=== PATIENT | male | born 1970 | race Hispanic/Latino ===

== ENCOUNTER 2020-07-17 13:46 | Emergency (ER) | payer SELFPAY ==
[2020-07-17 19:20] LABS: Absolute Lymphocytes (CBC) 1.4 K/uL (0.7-4.9); Basophils % 0.3 % (0-1.3); Lymphocytes % 20.5 % (15.3-44.8); MPV 7.4 fL (7.6-11.3); RBC Red Blood Cell Count 4.62 M/uL (4.33-5.43)
[2020-07-17 19:26] LABS: Protime INR 1.08
[2020-07-17 19:41] LABS: ALT/SGPT 23 U/L (12-78); AST/SGOT 25 U/L (15-37); Albumin 3.4 g/dL (3.4-5.0); Alkaline Phosphatase 86 U/L (45-117); BUN Blood Urea Nitrogen 16 mg/dL (7-18); Bicarbonate 23 mmol/L (21-32); Bilirubin Direct 0.1 mg/dL (0-0.2); Bilirubin Total 0.4 mg/dL (0.2-1.0); Glucose Level 93 mg/dL (74-106); Magnesium 2.3 mg/dL (1.8-2.4); NT PRO-BNP 45 pg/mL (<125); Potassium 3.4 mmol/L (3.5-5.1); Protein, Total 8.3 g/dL (6.4-8.2); Sodium Level 140 mmol/L (136-145); Troponin (Emerg Dept Use Only) 0.03 ng/mL (0.0-0.045)
--- NOTE | 2020-07-17 20:01 | RAD REPORT ---
EXAM DESCRIPTION: RAD - Chest Single View - 07/17/2020 7:29 pm CLINICAL HISTORY: SOB Chest pain. COMPARISON: No comparisons FINDINGS: Portable technique limits examination quality. Moderate patchy opacities are present in the right lung likely related to infection/ pneumonia. The h eart is normal in size. No displaced fractures.
[2020-07-17] MEDS ORDERED: dexAMETHasone 10 MG/ML VIAL ONE (20:15)
[2020-07-17] MEDS ORDERED: NA CHLORIDE 0.9% 50 ML ONE (20:15)
[2020-07-17] MEDS ORDERED: LEVALBUTEROL 1.25 MG/3 ML NEB ONE (20:15)
--- NOTE | 2020-07-17 20:19 | RAD REPORT ---
EXAM DESCRIPTION: CT - Chest For Pe Angio - 07/17/2020 8:08 pm CLINICAL HISTORY: Chest pain. SOB COMPARISON: No comparisons TECHNIQUE: CT angiogram of the pulmonary arteries was performed with MIP. All CT scans are performed using dose optimization technique as appropriate and may include automated exposure control or mA/KV adjustment according to patient size. FINDINGS: No evidence of pulmonary thromboembolism. No acute aortic finding demonstrated. Moderate patchy opacity is present along the periphery of both lungs, greater on the right. This is l ikely related viral pneumonitis/ bronchitis. No significant pericardial or pleural fluid. No concerning bony finding. IMPRESSION: No evidence of pulmonary thromboembolism. Moderate patchy opacity along the periphery of both lungs, greater on the right. This is likely relat ed to COVID-19 infection.
--- NOTE | 2020-07-17 20:57 | EDPHYS ---
Physician Documentation [facility] Name: Felipe Swenson Age: 49 yrs Sex: Male : 1970 Arrival Date: 07/17/2020 Time: 13:50 Bed 20 Private MD: ED Physician Jeevan Osorio HPI: 07/17 20:34 This 49 yrs old Male presents to ER via Ambulatory with complaints of covid+, jmm getting worse. 20:34 The patient or guardian reports cough, SOB. Onset: The symptoms/episode began/occurred jmm gradually, 2 week(s) ago. Modifying factors: The symptoms are alleviated by nothing. the symptoms are aggravated by activity. Associated signs and symptoms: Pertinent positives: chest pain, with cough, with breathing, vomiting. This is a 49 year old male with no chronic medical conditions that presents to the ED with complaints of cough, chills, chest pain, vomiting worsening over the past 2 weeks since being diagnosed with covid. . Historical: - Allergies: 14:25 No Known Allergies; ll1 - PMHx: 14:25 None; ll1 - PSHx: 14:25 None; ll1 - Immunization history:: Flu vaccine is not up to date. - Social history:: Smoking status: Patient denies any tobacco usage or history of. ROS: 20:34 ENT: Negative for injury, pain, and discharge, Neck: Negative for injury, pain, and jmm swelling. 20:34 Constitutional: Positive for body aches, chills, fever. 20:34 Cardiovascular: Positive for chest pain, with cough. 20:34 Respiratory: Positive for shortness of breath. 20:34 Abdomen/GI: Positive for vomiting. 20:34 All other systems are negative. Exam: 20:34 Constitutional: This is a well developed, well nourished patient who is awake, alert, jmm and in no acute distress. Head/Face: atraumatic. Eyes: EOMI, no conjunctival erythema appreciated ENT: Moist Mucus Membranes Neck: Trachea midline, Supple Chest/axilla: Normal chest wall appearance and motion. Cardiovascular: Regular rate and rhythm. No edema appreciated Respiratory: Normal respirations, no respiratory distress appreciated Abdomen/GI: Non distended, soft Back: Normal ROM Skin: General appearance color normal MS/ Extremity: Moves all extremities, no obvious deformities appreciated, no edema noted to the lower extremities Neuro: Awake and alert, normal gait Psych: Behavior is normal, Mood is normal, Patient is cooperative and pleasant 20:48 ECG was reviewed by the Attending Physician. [facility] Vital Signs: 14:23 BP 106 / 89; Pulse 106; Resp 20; Temp 98.1; Pulse Ox 98% on R/A; Weight 68.04 kg; ll1 Height 5 ft. 3 in. (160.02 cm); Pain 7/10; 18:34 BP 125 / 74; Pulse 93; Resp 18; Pulse Ox 94% on R/A; bw 19:00 BP 129 / 87; Pulse 95; Resp 20; Pulse Ox 95% on 2 lpm NC; sf 19:15 BP 125 / 76; Pulse 94; Resp 20; Pulse Ox 98% ; sf 19:30 BP 133 / 80; Pulse 95; Resp 20; Pulse Ox 99% ; sf 19:45 BP 116 / 75; Pulse 93; Resp 20; Pulse Ox 99% ; sf 21:04 BP 110 / 70; Pulse 112; Resp 18; Pulse Ox 98% on 2 lpm NC; sf 14:23 Body Mass Index 26.57 (68.04 kg, 160.02 cm) ll1 MDM: 18:47 Patient medically screened. [facility] 20:49 Data reviewed: vital signs, nurses notes. Counseling: I had a detailed discussion with [facility] the patient and/or guardian regarding: the historical points, exam findings, and any diagnostic results supporting the discharge/admit diagnosis, lab results, radiology results, the need for outpatient follow up. ED course: Patient is alert and non toxic in appearance in the ED. No signs of resp distress appreciated. Patient states he feels much better. Patient is otherwise given strict return precautions. Patient understood and agrees with the plan of care. . 07/17 18:48 Order name: Basic Metabolic Panel [facility] 07/17 18:48 Order name: CBC with Diff; Complete Time: 19:[address] [facility] 07/17 18:48 Order name: LFT's; Complete Time: 19:[address] [facility] 07/17 18:48 Order name: Magnesium; Complete Time: 19:[address] [facility] 07/17 18:48 Order name: NT PRO-BNP; Complete Time: 19:[address] [facility] 07/17 18:48 Order name: PT-INR; Complete Time: 19:[address] [facility] 07/17 18:48 Order name: Troponin (emerg Dept Use Only); Complete Time: 19:[address] [facility] 07/17 18:48 Order name: XRAY Chest (1 view); Complete Time: 20:[address] [facility] 07/17 18:48 Order name: EKG; Complete Time: 18:[address] [facility] 07/17 18:48 Order name: D-Dimer; Complete Time: 19:[address] [facility] 07/17 18:48 Order name: Basic Metabolic Panel; Complete Time: 19:43 [facility] 07/17 19:38 Order name: CT Chest For PE Angio; Complete Time: 20:[address] [facility] 07/17 18:48 Order name: Cardiac monitoring; Complete Time: 19:[address] [facility] 07/17 18:48 Order name: EKG - Nurse/Tech; Complete Time: 20:[address] [facility] 07/17 18:48 Order name: IV Saline Lock; Complete Time: 19:[address] [facility] 07/17 18:48 Order name: Labs collected and sent; Complete Time: 19:[address] [facility] 07/17 18:48 Order name: O2 Per Protocol; Complete Time: 19:[address] [facility] 07/17 18:48 Order name: O2 Sat Monitoring; Complete Time: 19:[address] [facility] EC:48 Rate is 95 beats/min. Rhythm is regular. QRS [place] is Normal. [place] interval is normal. QRS jmm interval is normal. QT interval is normal. No Q waves. T waves are Normal. No ST changes noted. Reviewed by me. Administered Medications: 20:21 Drug: Decadron - Dexamethasone 10 mg Route: IVP; Site: left antecubital; sf 20:55 Follow up: Response: No adverse reaction; Marked relief of symptoms sf 20:24 Drug: Xopenex (3) 1.25 mg Route: Inhalation; sf 20:55 Follow up: Response: No adverse reaction; Marked relief of symptoms sf Disposition: 07/17/20 20:56 Discharged to Home. Impression: Coronavirus infection, unspecified. - Condition is Stable. - Discharge Instructions: COVID-19. - Prescriptions for Zofran ODT 4 mg Oral tablet,disintegrating - place 1 tablet by TRANSLINGUAL route every 4-6 hours; 20 tablet. Prednisone 20 mg Oral Tablet - take 3 tablet by ORAL route once daily for 5 days; 15 tablet. Albuterol Sulfate 90 mcg/actuation - inhale 1-2 puff by INHALATION route every 4-6 hours; 1 Inhaler. ivermectin 3 mg Oral tablet - take 6 tablet by ORAL route as directed take 1 dose on day 1 and one dose on day 3; 12 tablet. - Medication Reconciliation Form, Thank You Letter, Antibiotic Education, Prescription Opioid Use form. - Follow up: Private Physician; When: 2 - 3 days; Reason: Recheck today's complaints, Continuance of care, Re-evaluation by your physician. Addendum: 07/21/2020 09:57 Co-signature as Attending Physician, Jeevan Osorio MD. r n Signatures: Dispatcher [employer] EDMS Mele Mcgovern PA PA jmm Nieto, Roman, MD MD rn Nitin Long RN RN ll1 Bong Schmidt RN RN sf Corrections: (The following items were deleted from the chart) 07/17 21:37 20:56 07/17/2020 20:56 Discharged to Home. Impression: Coronavirus infection, sf unspecified. Condition is Stable. Forms are Medication Reconciliation Form, Thank You Letter, Antibiotic Education, Prescription Opioid Use. Follow up: Private Physician; When: 2 - 3 days; Reason: Recheck today's complaints, Continuance of care, Re-evaluation by your physician. unique
--- NOTE | 2020-07-17 20:57 | ER ---
Nurse's Notes [facility] Name: Felipe Swenson Age: 49 yrs Sex: Male : 1970 Arrival Date: 07/17/2020 Time: 13:50 Bed 20 Private MD: Diagnosis: Coronavirus infection, unspecified Presentation: 07/17 14:23 Chief complaint: Patient states: Covid + for 2 weeks, worse for 5 days. Shaking and SOB ll1 today. Fever 104 at home. Coronavirus screen: Client denies travel out of the [place] in the last 14 days. chills, congestion, cough unrelated to allergies, diarrhea, difficulty breathing, fatigue, fever, muscle pain, nausea, shortness of breath, sore throat, Client presents with at least one sign or symptom that may indicate coronavirus-19. Standard/surgical mask placed on the client. Ebola Screen: Patient denies travel to an Ebola-affected area in the 21 days before illness onset. Initial Sepsis Screen: Does the patient meet any 2 criteria? HR > 90 bpm. No. Patient's initial sepsis screen is negative. Does the patient have a suspected source of infection? Yes: Productive cough/pneumonia. Risk Assessment: Do you want to hurt yourself or someone else? Patient reports no desire to harm self or others. Onset of symptoms was July 03, 2020. 14:23 Method Of Arrival: Ambulatory ll1 14:23 Acuity: OUS[place] 3 ll1 Historical: - Allergies: 14:25 No Known Allergies; ll1 - PMHx: 14:25 None; ll1 - PSHx: 14:25 None; ll1 - Immunization history:: Flu vaccine is not up to date. - Social history:: Smoking status: Patient denies any tobacco usage or history of. Screenin:34 Abuse screen: Denies threats or abuse. Nutritional screening: No deficits noted. bw Tuberculosis screening: No symptoms or risk factors identified. Fall Risk None identified. Assessment: 18:34 Reassessment: pt states shortness of breath that has worsened. States he is COVID bw positive. Day 12. Pain: Complains of pain in chest on inspiration. Neuro: No deficits noted. Cardiovascular: No deficits noted. Respiratory: Reports shortness of breath cough that is non-productive. GI: No deficits noted. : No deficits noted. Vital Signs: 14:23 BP 106 / 89; Pulse 106; Resp 20; Temp 98.1; Pulse Ox 98% on R/A; Weight 68.04 kg; ll1 Height 5 ft. 3 in. (160.02 cm); Pain 7/10; 18:34 BP 125 / 74; Pulse 93; Resp 18; Pulse Ox 94% on R/A; bw 19:00 BP 129 / 87; Pulse 95; Resp 20; Pulse Ox 95% on 2 lpm NC; sf 19:15 BP 125 / 76; Pulse 94; Resp 20; Pulse Ox 98% ; sf 19:30 BP 133 / 80; Pulse 95; Resp 20; Pulse Ox 99% ; sf 19:45 BP 116 / 75; Pulse 93; Resp 20; Pulse Ox 99% ; sf 21:04 BP 110 / 70; Pulse 112; Resp 18; Pulse Ox 98% on 2 lpm NC; sf 14:23 Body Mass Index 26.57 (68.04 kg, 160.02 cm) ll1 ED Course: 13:50 Patient arrived in ED. as 14:25 Triage completed. ll1 14:26 Arm band placed on. 1 18:28 Mele Mcgovern PA is PHCP. [facility] 18:28 Jeevan Osorio MD is Attending Physician. [facility] 18:30 Stacey Roger, SHOAIB is Primary Nurse. bw 18:34 Patient has correct armband on for positive identification. Call light in reach. Side bw rails up X 1. Pulse ox on. NIBP on. Warm blanket given. 18:34 No provider procedures requiring assistance completed. bw 19:00 Initial lab(s) drawn, by ED staff, sent to lab. Inserted saline lock: 20 gauge in left sf antecubital area, using aseptic technique. Blood collected. 19:12 Primary Nurse role handed off by Stacey Roger, SHOAIB mw2 19:13 Bong Schmidt, SHOAIB is Primary Nurse. sf 19:14 Basic Metabolic Panel Sent. sf 19:14 XRAY Chest (1 view) Sent. sf 19:14 X-ray(s) taken. sf 19:29 XRAY Chest (1 view) In Process Unspecified. EDMS 20:01 CT Chest For PE Angio Sent. sf 20:07 CT Chest For PE Angio In Process Unspecified. EDMS 20:21 EKG done, by ED staff, reviewed by Mele SANTORO. sf 21:36 IV discontinued, intact, bleeding controlled, No redness/swelling at site. Pressure sf dressing applied. Administered Medications: 20:21 Drug: Decadron - Dexamethasone 10 mg Route: IVP; Site: left antecubital; sf 20:55 Follow up: Response: No adverse reaction; Marked relief of symptoms sf 20:24 Drug: Xopenex (3) 1.25 mg Route: Inhalation; sf 20:55 Follow up: Response: No adverse reaction; Marked relief of symptoms sf Outcome: 20:56 Discharge ordered by . unique 21:36 Discharged to home ambulatory. sf 21:36 Condition: stable 21:36 Discharge instructions given to patient, Instructed on discharge instructions, follow up and referral plans. medication usage, Demonstrated understanding of instructions, follow-up care, medications, Prescriptions given X 4. 21:37 Patient left the ED. sf Signatures: Dispatcher [employer] EDIL Mele Mcgovern PA PA jmm Martinez, Amelia as [place], MyKena mw2 Nitin Long RN RN ll1 Bong Schmidt RN RN sf Webb, Bethany, RN RN
[2020-07-17 22:48] VITALS: TEMP 98.1
[2020-07-17 22:56] VITALS: BP 110/70; O2SAT 98
--- NOTE | 2020-07-18 07:03 | EKG ---
Test Date: 2020-07-17 Test Time: 19:21:35 [place] Runner: RAZA MEASUREMENT RESULTS: Intervals: Rate: 95 OR: 130 QRSD: 86 QT: 356 QTc: 447 Groom: P: 48 OR: 130 QRS: 39 T: 14 INTERPRETIVE STATEMENTS: Normal sinus rhythm Normal ECG No previous ECG available for comparison Electronically Signed On 07-18-20 07:02:23 CDT by George Ware
== END 2020-07-17 21:37 | disposition home or self-care (01) ==
LOC: ER 13:46
DX: U07.1 COVID-19 (principal)
CPT/HCPCS: 36415; 71045; 71275; 80048; 80076; 83735; 83880; 84484; 85025; 85379; 85610; 93005; 96374; 99285; J1100; Q9967